=== PATIENT | female | born 1995 | race Caucasian/White ===

== ENCOUNTER 2017-01-05 12:52 | Emergency (ER) | payer OTHER ==
[~2017-01-05] VITALS: Ht 172.7 cm; Wt 63.5 kg
[~2017-01-05 12:52] MED LIST: CIPR500T94 PO; HYDR1TAB12 PO; NITR100C62 PO
[2017-01-05 13:00] VITALS: BP 129/84
--- NOTE | 2017-01-05 13:37 | ED.ADGEN ---
Past History Past Medical History: No Pertinent History, Other Past Surgical History: Other Smoking: Non-smoker Alcohol Use: None Drug Use: None Adult General Chief Complaint Chief Complaint Dental pain HPI HPI Patient is a 21-year-old female presents with post-was some tooth extraction mouth pain. Patient had 4 upper and was some tooth extracted yesterday by her dentist, Dr. Pulido in [place]. Patient has been in contact with Dr. Pulido's office who instructed her to achieve penicillin and to double up on her hydrocodone. Patient has been compliant with therapy, but reports continued swelling and pain. She denies worsening of swelling and pain dysphonia and dysphagia trismus and voice hoarseness. Review of Systems Review of Systems ROS as per HPI. Current Medications Current Medications Current Medications Medications (Trade) Dose Ordered Sig/Rubens Start Time Stop Time Status Last Admin Dose Admin Ketorolac Tromethamine (Toradol) 60 mg 1X ONCE 01/05/17 13:30 01/05/17 13:31 UNV Allergies Allergies Allergies Coded Allergies Type Severity Reaction Last Updated Verified Penicillins Allergy Unknown 11/28/15 Yes Physical Exam Physical Exam Constitutional: Well developed, well nourished, discomfort secondary to pain. HENT: Normocephalic, atraumatic, bilateral external ears normal, oropharynx moist, facial swelling consistent with normal postoperative dental extraction. Appropriate post extraction posterior gingival swelling. No active bleeding, drooling, dysphonia or hoarseness. Eyes: PERRL. Neck: Normal range of motion. Current Patient Data Vital Signs Vital Signs Date Time Temp Pulse Resp B/P (MAP) Pulse Ox O2 Delivery O2 Flow Rate FiO2 01/05/17 13:00 98.7 89 20 98 Room Air EKG EKG [] Radiology/Procedures Radiology/Procedures [] Course & Med Decision Making Course & Med Decision Making Pertinent Labs and Imaging studies reviewed. (See chart for details) [Toradol given for pain control. Patient's dentist did offer to see patient today. I'm in agreement with that this is the best option for evaluation of potential dental related complication.] Final Impression Final Impression [1. Post tooth extraction pain] Problems: Dragon Disclaimer Dragon Disclaimer This electronic medical record was generated, in whole or in part, using a voice recognition dictation system. MICHAEL NOGUEIRA DO January 05, 2017 13:37
[2017-01-05] MEDS ORDERED: KETOROLAC 60 MG/2 ML VIAL. IM ONE (13:45)
== END 2017-01-05 13:58 | disposition home or self-care (01) ==
LOC: ER 12:52
DX: G89.18 Other acute postprocedural pain (principal); K08.89 Other specified disorders of teeth and supporting structures; Z88.0 Allergy status to penicillin
CPT/HCPCS: 96372; 99283; J1885

== ENCOUNTER 2017-01-10 22:37 | Emergency (ER) | payer OTHER ==
[2017-01-10 22:40] VITALS: BP 126/75
--- NOTE | 2017-01-10 22:40 | ED.ADGEN ---
Past History Past Medical History: No Pertinent History, Other Past Surgical History: Other Smoking: Non-smoker Alcohol Use: None Drug Use: None Adult General Chief Complaint Chief Complaint Dental pain HPI HPI Patient is a 21 year old female who presents with left-sided pain. She states on of last week she had her bottom left was in tooth removed and Sunday she was seen in the ER and was given a shot Toradol and sent home with hydrocodone. She states the Toradol really helped with her pain. She states 2 days ago she ran out of her hydrocodone. She denies any fevers chills. She states she's been feeling nauseated secondary to pain. She states she tried some of her son's ODT Zofran and it made it better. She denies any trismus, trouble swallowing, changes in voice. She spoke with her dentist who wanted to be evaluated in the ER since she doesn't have a car and can't drive all the way up to see him. She states she is currently taking Augmentin when she's not to nauseated. She is requesting Toradol. Review of Systems Review of Systems Constitutional: Denies fever or chills [] Eyes: Denies change in visual acuity, redness, or eye pain [] HENT: Denies nasal congestion or sore throat [] Respiratory: Denies cough or shortness of breath [] Cardiovascular: No additional information not addressed in HPI [] GI: Denies abdominal pain, nausea, vomiting, bloody stools or diarrhea [] : Denies dysuria or hematuria [] Musculoskeletal: Denies back pain or joint pain [] Integument: Denies rash or skin lesions [] Neurologic: Denies headache, focal weakness or sensory changes [] Endocrine: Denies polyuria or polydipsia [] Current Medications Current Medications Current Medications Medications (Trade) Dose Ordered Sig/Rubens Start Time Stop Time Status Last Admin Dose Admin Ketorolac Tromethamine (Toradol) 60 mg 1X ONCE 01/10/17 23:30 01/10/17 23:31 DC 01/10/17 23:15 60 MG Ondansetron HCl (Zofran Odt) 4 mg 1X ONCE 01/10/17 23:30 01/10/17 23:31 DC 01/10/17 23:16 4 MG Allergies Allergies Allergies Coded Allergies Type Severity Reaction Last Updated Verified Penicillins Allergy Unknown 4/10/16 Yes Physical Exam Physical Exam Constitutional: Well developed, well nourished, no acute distress, non-toxic appearance. [] HENT: Normocephalic, atraumatic, bilateral external ears normal, oropharynx moist, no oral exudates, nose normal. Well-healed incision left lower posterior jaw, no signs of Ashkan angina, no trismus, able to handle secretions well. Eyes: PERRLA, EOMI, conjunctiva normal, no discharge. [] Neck: Normal range of motion, no tenderness, supple, no stridor. [] Cardiovascular:Heart rate regular rhythm, no murmur [] Lungs & Thorax: Bilateral breath sounds clear to auscultation [] Abdomen: Bowel sounds normal, soft, no tenderness, no masses, no pulsatile masses. [] Skin: Warm, dry, no erythema, no rash. [] Back: No tenderness, no CVA tenderness. [] Extremities: No tenderness, no cyanosis, no clubbing, ROM intact, no edema. [] Neurologic: Alert and oriented X 3, normal motor function, normal sensory function, no focal deficits noted. [] Psychologic: Affect normal, judgement normal, mood normal. [] Current Patient Data Lab Results Laboratory Tests Test 01/10/17 23:08 POC Hemoglobin 11.9 gm/dL POC Hematocrit 35 % POC Sodium 143 mmol/L (135-145) POC Potassium 3.6 mmol/L (3.5-5.0) POC Chloride 107 mmol/L (98-110) POC Total CO2 20 mmol/L (23-32) L Anion Gap 20 mmol/L (6-14) H POC Blood Urea Nitrogen 12 mg/dL (8-26) POC Creatinine 0.7 mg/dL (0.5-1.4) Glucose Level 110 mg/dL (60-99) H POC Ionized Calcium (Aruna) 1.17 mmol/L (1.13-1.32) EKG EKG [] Radiology/Procedures Radiology/Procedures [] Course & Med Decision Making Course & Med Decision Making Pertinent Labs and Imaging studies reviewed. (See chart for details) We'll give her 60 mg IM shot of Toradol if her BMP is appropriate and discharge her with 15 tablets of hydrocodone in addition to ODT Zofran. Patient's follow- up with her dentist. Return precautions given for troubles breathing, swallowing , unable handle secretions, fevers or other concerns. She is agreeable to plan and being discharged in stable condition this time. Final Impression Final Impression Dental pain Problems: Dragon Disclaimer Dragon Disclaimer This electronic medical record was generated, in whole or in part, using a voice recognition dictation system. THALIA COLON MD January 10, 2017 22:40
[2017-01-10 23:12] LABS: HEMOGLOBIN ISTAT 11.9 gm/dL; POTASSIUM ISTAT 3.6 mmol/L (3.5-5.0)
[2017-01-10] MEDS ORDERED: ONDA4TAB10 SL (23:15)
[2017-01-10] MEDS ORDERED: HYDR-971 PO (23:15)
[2017-01-10] MEDS ORDERED: ONDANSETRON ODT 4 MG TAB.RAPDIS PO ONE (23:30)
[2017-01-10] MEDS ORDERED: KETOROLAC 60 MG/2 ML VIAL. IM ONE (23:30)
== END 2017-01-10 23:55 | disposition home or self-care (01) ==
LOC: ER 22:37
DX: K08.89 Other specified disorders of teeth and supporting structures (principal); R11.0 Nausea; Z88.0 Allergy status to penicillin
CPT/HCPCS: 80047; 96372; 99283; J1885; Q0162

== ENCOUNTER 2017-03-28 12:57 | Emergency (ER) | payer OTHER ==
[~2017-03-28] VITALS: Ht 325.1 cm; Wt 63.5 kg
[~2017-03-28 12:57] MED LIST changes: +HYDR-971 PO; +ONDA4TAB10 SL
[2017-03-28 13:05] VITALS: BP 118/71
--- NOTE | 2017-03-28 13:12 | PHYS DOC ---
Past History Past Medical History: No Pertinent History Past Surgical History: Other Smoking: Non-smoker Alcohol Use: None Drug Use: None Adult General Chief Complaint Chief Complaint: HAND PROBLEM HPI HPI 21-year-old female presenting the emergency department today after having a bug bite on her left hand. She has mild pruritus with it. No alleviating or exacerbating factors. It started yesterday. Nonradiating. ROS negative for chest pain shortness of breath nausea vomiting abdominal pain. All other review of systems is negative unless otherwise noted in history of present illness. ED course: 89-year-old female presenting to the emergency department after having an insect bite on her left hand. Pertinent physical exam findings show mild erythema and mild swelling. Wheal present. No evidence of necrosis. Neurovascularly intact distally. I recommend cold packs and follow-up with her doctor the next few days. Review of Systems Review of Systems SEE ABOVE Allergies Allergies Allergies Coded Allergies Type Severity Reaction Last Updated Verified Penicillins Allergy Unknown 11/28/15 Yes Physical Exam Physical Exam Constitutional: Well developed, well nourished, no acute distress, non-toxic appearance. [] HENT: Normocephalic, atraumatic, bilateral external ears normal, oropharynx moist, no oral exudates, nose normal. [] Eyes: PERRLA, EOMI, conjunctiva normal, no discharge. [] Neck: Normal range of motion, no tenderness, supple, no stridor. [] Cardiovascular:Heart rate regular rhythm, no murmur [] Lungs & Thorax: Bilateral breath sounds clear to auscultation [] Abdomen: Bowel sounds normal, soft, no tenderness, no masses, no pulsatile masses. [] Skin: Warm, dry, no erythema, bug bite present on the hand. Back: No tenderness, no CVA tenderness. [] Extremities: See above. Neurologic: Alert and oriented X 3, normal motor function, normal sensory function, no focal deficits noted. [] Psychologic: Affect normal, judgement normal, mood normal. [] EKG EKG [] Radiology/Procedures Radiology/Procedures [] Course & Med Decision Making Course & Med Decision Making Pertinent Labs and Imaging studies reviewed. (See chart for details) [] Dragon Disclaimer Dragon Disclaimer This chart was dictated in whole or in part using Voice Recognition software in a busy, high-work load, and often noisy Emergency Department environment. It may contain unintended and wholly unrecognized errors or omissions. Departure Departure: Impression: Primary Impression: Bug bite Disposition: 01 HOME, SELF-CARE Condition: STABLE Referrals: KYRA PINEDA DO (PCP) Patient Instructions: Insect Bite Additional Instructions: Thank you for allowing us to participate in your care today. Clean the bite with mild soap and water. Apply cold packs, taking care not to freeze the tissue. Followup with your primary care physician in 3 days if your symptoms do not improve. Call your Primary Doctor tomorrow and inform them of your visit today. If you do not have a primary care provider you can ask for a list of our primary care providers. Return to the emergency department you have any new or concerning findings. This should be evaluated by the primary care physician and any necessary consulting services for continued management within a few days after discharge. Return to emergency room if you have any new or concerning symptoms including but not limited to fever, chills, nausea, vomiting, intractable pain, any new rashes, chest pain, shortness of air, uncontrolled bleeding, difficulty breathing, and/or vision loss. KRYSTLE VARGAS MD Mar 28, 2017 13:12
== END 2017-03-28 13:25 | disposition home or self-care (01) ==
LOC: ER 12:57
DX: S60.562A Insect bite (nonvenomous) of left hand, initial encounter (principal); Z88.0 Allergy status to penicillin; W57.XXXA Bitten or stung by nonvenomous insect and other nonvenomous arthropods, initial encounter; Y93.89 Activity, other specified; Y99.8 Other external cause status; Y92.89 Other specified places as the place of occurrence of the external cause
CPT/HCPCS: 99281

== ENCOUNTER 2017-04-17 08:14 | Emergency (ER) | payer OTHER ==
[~2017-04-17] VITALS: Ht 170.2 cm; Wt 72.6 kg
[2017-04-17 08:34] VITALS: BP 117/67
--- NOTE | 2017-04-17 09:09 | PHYS DOC ---
Past History Past Medical History: No Pertinent History Past Surgical History: Other Smoking: Non-smoker Alcohol Use: None Drug Use: None Adult General Chief Complaint Chief Complaint: SHOULDER INJURY [facility] HPI Patient is a 22 year old F who presents with left-sided shoulder pain that started the morning after she was moving furniture around. Her pain is worse with movement and improved with rest and positioning. Her pain does not radiate and is not associated with any other symptoms including shortness of breath. Her pain was gradual in onset and not abrupt. Her risk factors include 6 weeks gestational and taking progesterone Review of Systems Review of Systems Constitutional: Denies fever or chills [] Eyes: Denies change in visual acuity, redness, or eye pain [] HENT: Denies nasal congestion or sore throat [] Respiratory: Denies cough or shortness of breath [] Cardiovascular: No additional information not addressed in HPI [] GI: Denies abdominal pain, nausea, vomiting, bloody stools or diarrhea [] : Denies dysuria or hematuria [] Musculoskeletal: Negative except history of present illness Integument: Denies rash or skin lesions [] Neurologic: Denies headache, focal weakness or sensory changes [] Endocrine: Denies polyuria or polydipsia [] Family History Family History Noncontributory Current Medications Current Medications Progesterone oral Allergies Allergies Allergies Coded Allergies Type Severity Reaction Last Updated Verified Penicillins Allergy Unknown 11/28/15 Yes Physical Exam Physical Exam Constitutional: Well developed, well nourished, no acute distress, non-toxic appearance. [] HENT: Normocephalic, atraumatic, bilateral external ears normal, oropharynx moist, no oral exudates, nose normal. [] Eyes: PERRLA, EOMI, conjunctiva normal, no discharge. [] Cardiovascular:Heart rate regular rhythm, no murmur [] Lungs & Thorax: Bilateral breath sounds clear to auscultation [] Abdomen: Bowel sounds normal, soft, no tenderness, no masses, no pulsatile masses. [] Skin: Warm, dry, no erythema, no rash. [] Back: No tenderness, no CVA tenderness. [] Extremities: Pain over the left trap with palpation and with active movement of the left shoulder. No deformity, bruising or other signs of injury Neurologic: Alert and oriented X 3, normal motor function, normal sensory function, no focal deficits noted. [] Psychologic: Affect normal, judgement normal, mood normal. [] Current Patient Data Vital Signs Vital Signs Date Time Temp Pulse Resp B/P (MAP) Pulse Ox O2 Delivery O2 Flow Rate FiO2 04/17/17 08:34 98.4 79 20 96 Room Air Course & Med Decision Making Course & Med Decision Making Pertinent Labs and Imaging studies reviewed. (See chart for details) Isidra's [employer] was tempted recontacted by phone. She was offered a chance to wait emergency room or her [employer] was counseled to however she decided to leave prior to contacting her doctor. Dragon Disclaimer Dragon Disclaimer This chart was dictated in whole or in part using Voice Recognition software in a busy, high-work load, and often noisy Emergency Department environment. It may contain unintended and wholly unrecognized errors or omissions. Departure Departure: Impression: Primary Impression: Muscle spasm Disposition: ADMITTED INPATIENT Condition: STABLE Referrals: KYRA PINEDA DO (PCP) Patient Instructions: Muscle Strain Additional Instructions: Isidra was seen in the emergency room for shoulder pain. No emergency medical condition was found on history or physical exam. Her pain was most consistent with muscular skeletal pain. She was advised to follow-up with her primary care or [employer] in the next 3-5 days for further management. SHEILA DE LEON MD Apr 17, 2017 09:08
== END 2017-04-17 09:15 | disposition other institution (70) ==
LOC: ER 08:14
DX: M62.838 Other muscle spasm (principal); M25.512 Pain in left shoulder; Z88.0 Allergy status to penicillin
CPT/HCPCS: 99281

== ENCOUNTER → 2017-12-20 | Outpatient (CLI) | payer OTHER ==
--- NOTE | 2017-12-20 13:44 | RAD ---
Right knee, 2 views, 12/20/2017: HISTORY: Chronic knee pain No fracture or dislocation is identified. No significant arthritic change is seen. IMPRESSION: No significant right knee abnormality is detected. Electronically signed by: Dion Gonsalez MD (12/20/2017 1:40 PM) [facility]
== END | disposition home or self-care (01) ==
LOC: PMG 11:57
PROVIDERS: ATTEND Nurse Practitioner Family
DX: M25.561 Pain in right knee (principal); G89.29 Other chronic pain
CPT/HCPCS: 73560

== ENCOUNTER 2019-11-18 21:06 | Emergency (ER) | payer MEDICAID, OTHER ==
[~2019-11-18] VITALS: Ht 170.2 cm; Wt 81.0 kg
[2019-11-18 21:06] VITALS: BP 140/70
[~2019-11-18 21:06] MED LIST changes: +HYDR-3165 PO; -HYDR-971 PO; -HYDR1TAB12 PO; +HYDR1TAB13 PO
[2019-11-18] MEDS ORDERED: CHLO15MO2 PO (22:52)
[2019-11-18] MEDS ORDERED: PREN-48 PO (22:52)
[2019-11-18] MEDS ORDERED: CLIN150C14 PO (22:52)
--- NOTE | 2019-11-18 22:52 | PHYS DOC ---
Past History Past Medical History: No Pertinent History Past Surgical History: Other Smoking: Cigarettes Alcohol Use: None Drug Use: None Adult General Chief Complaint Chief Complaint: DENTAL PROBLEM HPI HPI 24-year-old female presents with right upper molar pain which is become worse today. Patient reports known dental loyd and reports history of prior pain to same area 3 months ago. Patient has yet to follow with her dentist. Denies fever or chills. Patient does report there is a possibility she might be . Review of Systems Review of Systems Constitutional: Denies fever or chills Eyes: Denies redness or eye pain HENT: Denies nasal congestion or sore throat; reports toothache Respiratory: Denies cough or shortness of breath Cardiovascular: Denies chest pain or palpitations GI: Denies abdominal pain, nausea, or vomiting : Denies dysuria or hematuria Musculoskeletal: Denies back pain or joint pain Integument: Denies rash or skin lesions Neurologic: Denies headache, focal weakness or sensory changes Complete systems were reviewed and found to be within normal limits, except as documented in this note. Current Medications Current Medications Current Medications Medications (Trade) Dose Ordered Sig/Rubens Start Time Stop Time Status Last Admin Dose Admin Acetaminophen (Tylenol) 500 mg 1X ONCE 11/18/19 22:15 11/18/19 22:16 DC Bupivacaine HCl/ Epinephrine Bitart (Sensorcain Epi 0.5%-[id number]) 30 ml 1X ONCE 11/18/19 22:15 11/18/19 22:16 DC Clindamycin HCl (Cleocin) 450 mg 1X ONCE 11/18/19 21:30 11/18/19 21:31 DC Dexamethasone (Decadron) 10 mg 1X ONCE 11/18/19 21:30 11/18/19 21:31 DC Allergies Allergies Allergies Coded Allergies Type Severity Reaction Last Updated Verified Penicillins Allergy Unknown 11/28/15 Yes Physical Exam Physical Exam Constitutional: Well developed, well nourished, uncomfortable, tearful, non- toxic appearance HENT: Normocephalic, atraumatic, oropharynx moist, right maxillary second molar with severe dental loyd/decay, poor dentition throughout, no fluctuant mass Eyes: Conjunctiva normal, no discharge Neck: Normal range of motion, no tenderness, supple Lungs & Thorax: No respiratory distress, equal chest rise and fall Skin: Warm, dry, no erythema, no rash Extremities: No deformity, ROM intact Neurologic: Alert and oriented X 3, speech normal Psychologic: Affect normal, judgment normal Current Patient Data Vital Signs Vital Signs Date Time Temp Pulse Resp B/P (MAP) Pulse Ox O2 Delivery O2 Flow Rate FiO2 11/18/19 21:06 98.1 69 20 140/70 (93) 100 Room Air Lab Results Laboratory Tests Test 11/18/19 21:44 POC Urine HCG, Qualitative hcg positive (Negative) EKG EKG [] Radiology/Procedures Radiology/Procedures [] Course & Med Decision Making Course & Med Decision Making Pertinent Lab studies reviewed. (See chart for details) Patient presents with report of right maxillary molar pain secondary to dental loyd. No drainable abscess noted. Afebrile. Patient positive urine test. Symptomatic treatment provided with oral steroid, Tylenol, and dental block. Empiric antibiotic initiated. Patient stable for discharge with outpatient follow-up with PCP/dentist. Discussed findings and plan with patient, who acknowledges understanding and agreement. Dragon Disclaimer Dragon Disclaimer This electronic medical record was generated, in whole or in part, using a voice recognition dictation system. Additional Procedures Progress Dental block: Performed by ED physician. PPE utilized including N95 mask/double gloves/face shield. Verbal consent obtained. Time out performed. Hand hygiene utilized. Anesthesia obtained via right superior posterior alveolar block a 27-gauge hypodermic needle with (3) mL's of bupivacaine 0.5% with epinephrine. Patient tolerated procedure well and without difficulty. Reports interval resolution of pain. Departure Departure: Impression: Primary Impression: Dentalgia Additional Impressions: Dental caries Disposition: HOME, SELF-CARE Condition: STABLE Referrals: COLTON BHAT APRN (PCP) Patient Instructions: ABCs of , Dental Caries, Toothache-Brief Additional Instructions: Call and make appointment with your dentist Scripts Vit No.124/Iron/FA ( Vitamin Tablet) 1 Each Tablet 1 TAB PO DAILY for for 30 Days, #30 TAB 0 Refills Prov: LO PARKER DO 11/18/19 Chlorhexidine Gluconate (PERIDEX) 15 Ml Mouthwash 15 ML PO BID for Dental Infection, #500 ML 0 Refills Prov: LO PARKER DO 11/18/19 Clindamycin Hcl (CLINDAMYCIN HCL) 150 Mg Capsule 3 CAP PO TID for Dental Infection for 7 Days, #63 CAP Prov: LO PARKER DO 11/18/19 Problem Qualifiers Additional Impressions: Weeks of gestation: unspecified Qualified Codes: Z34.90 - Encounter for supervision of normal , unspecified, unspecified trimester LO PARKER DO Nov 18, 2019 22:52
[2019-11-18] MEDS: DEXAMETHASONE 4 MG TABLET PO ONE (23:11)
[2019-11-18] MEDS: CLINDAMYCIN HCL 150 MG CAPSULE PO ONE (23:11)
[2019-11-18] MEDS: ACETAMINOPHEN 500 MG TABLET PO ONE (23:11)
[2019-11-18] MEDS: [UNRECOGNIZED DRUG - OTHER] IJ ONE (23:12)
== END 2019-11-18 23:15 | disposition home or self-care (01) ==
LOC: ER 21:06
DX: O99.611 Diseases of the digestive system complicating pregnancy, first trimester (principal); K02.9 Dental caries, unspecified; O99.331 Smoking (tobacco) complicating pregnancy, first trimester; Z3A.00 Weeks of gestation of pregnancy not specified
CPT/HCPCS: 64400; 81025; 99284; J3490; J8540